=== PATIENT | female | born 1930 | race Two or more races ===

== ENCOUNTER 2017-02-24 13:16 | Emergency (ER) | payer OTHER ==
[~2017-02-24] VITALS: Ht 165.1 cm; Wt 72.6 kg
[2017-02-24 15:15] LABS: BASOPHIL % 0.1 % (0-2); PLATELET COUNT 179 x10^3mcL (130-400)
[2017-02-24 15:17] LABS: RED CELL DISTRIBUTION WIDTH 18.8 % (11.5-14.5)
[2017-02-24 15:28] LABS: CALCIUM 8.1 mg/dL (8.5-10.1); CARBON DIOXIDE 34.4 mmol/L (21-32); CHLORIDE SERUM 102 mmol/L (98-107); CREATININE SERUM 2.1 mg/dL (0.6-1.0); GLUCOSE SERUM 75 mg/dL (74-106); SODIUM SERUM 142 mmol/L (136-145)
[2017-02-24 15:32] LABS: ALKALINE PHOSPHATASE 296 U/L (46-116); ALT/SGPT 33 U/L (14-59); BILIRUBIN TOTAL 2.6 mg/dL (0.20-1.00); LIPASE 410 IU/L (73-393)
[2017-02-24 15:33] LABS: ALBUMIN 1.8 g/dL (3.4-5.0); TOTAL PROTEIN, SERUM 5.6 g/dL (6.4-8.2)
[2017-02-24 15:44] LABS: AST/SGOT 50 U/L (15-37); POTASSIUM SERUM 3.6 mmol/L (3.5-5.1)
[2017-02-24 17:55] VITALS: BP 156/83
== END 2017-02-24 17:55 | disposition home or self-care (01) ==
LOC: ED 13:16
PROVIDERS: Emergency Medicine
DX: R41.82 Altered mental status, unspecified (principal); E11.22 Type 2 diabetes mellitus with diabetic chronic kidney disease; N18.6 End stage renal disease; Z99.2 Dependence on renal dialysis; E78.00 Pure hypercholesterolemia, unspecified; Z88.5 Allergy status to narcotic agent
CPT/HCPCS: J7040; Q0092